=== PATIENT | male | born 1965 | race Caucasian/White ===

== ENCOUNTER → 2020-02-29 09:54 | Outpatient (CLI) | payer BC, SELFPAY ==
[2020-02-29 13:58] LABS: Free T4 (Free Thyroxine) 1.56 ng/dl (0.78-2.19)
[2020-02-29 14:12] LABS: Thyroid Stimulating Hormone < 0.02 uIU/mL (0.465-4.68)
== END ==
PROVIDERS: Visit Provider Internal Medicine
DX: E11.65 Type 2 diabetes mellitus with hyperglycemia (principal); E03.9 Hypothyroidism, unspecified
CPT/HCPCS: 84439; 84443

== ENCOUNTER → 2020-06-28 08:18 | Outpatient (CLI) | payer BC, SELFPAY ==
[2020-06-28 13:39] LABS: Chol/HDL Ratio 4.8 (1-3.5); Cholesterol 183 mg/dl (140-200); HDL Cholesterol 38 mg/dl (40-60); Triglycerides 146 mg/dl (30-150); VLDL Cholesterol 29 mg/dL (0-40)
[2020-06-28 14:34] LABS: Hemoglobin A1C 8.3 % (4.0-6.0)
== END ==
LOC: LAB.CARL 08:19 → LAB.DROPOF 08:19
PROVIDERS: Visit Provider Internal Medicine
DX: E11.65 Type 2 diabetes mellitus with hyperglycemia (principal)
CPT/HCPCS: 80061; 83036

== ENCOUNTER → 2020-07-26 07:51 | Outpatient (CLI) | payer BC, SELFPAY ==
[2020-07-26 14:09] LABS: Free T4 (Free Thyroxine) 1.81 ng/dl (0.78-2.19)
[2020-07-26 14:23] LABS: Thyroid Stimulating Hormone < 0.02 uIU/mL (0.465-4.68)
== END ==
PROVIDERS: Visit Provider Internal Medicine
DX: E11.65 Type 2 diabetes mellitus with hyperglycemia (principal)
CPT/HCPCS: 84439; 84443